=== PATIENT | female | born 1960 | race Caucasian/White ===

== ENCOUNTER 2016-10-24 10:16 | Inpatient (IN) | payer BC ==
--- NOTE | ~2016-10-24 | HP ---
History And Physical [facility] [address] [place]. [address] NAME: ARIE STONE : 64 STATUS : ADM IN [facility]#: [id number] AGE: 56 ADM/REG DATE : 10/24/16 MR#: [id number] REPORT SERV DATE: 10/24/16 DICTATED BY: ABIDA FRANKLIN JR. DATE: 10/24/16 REPORT STATUS : Draft TRANSCRIBED BY: MODJass DATE: 10/24/16 DATE OF ADMISSION: 10/24/2016 REASON FOR ADMISSION: Loculated left pleural effusion. BRIEF HISTORY: This is a 56-year-old white female who had been seen in the emergency room on 10/10/2016 with back pain. At that time, she underwent chest x-ray, as well as CTA of her chest, which were both normal with the exception of some distal thoracic esophageal thickening. Over the last week, she had increasing cough mostly nonproductive and increased pain in her left back with shortness of breath associated with it. She states it was fairly continuous and only got relief with some rest. She denies any fevers associated with it. Because of this, she re-presented to [facility] and was admitted on 10/19. She underwent repeat CT scan, which shows a loculated left pleural effusion. She was also noted to have an elevated white blood count. She was started on antibiotics and we were asked to transfer her for consideration for surgical decortication. PAST MEDICAL HISTORY: Significant for severe scoliosis requiring placement of Soriano rods as a teenager. Chronic back pain and history of tobacco abuse. PAST SURGICAL HISTORY: Includes placement of the Soriano rods in her spine, left hand surgery with tendon repair, and a tubal ligation. HOME MEDICATIONS: Include Sparks 5/325 one tablet every six hours as needed for pain, Advil 4 mg every six hours as needed for pain, Robaxin 750 mg p.o. three times daily. ALLERGIES: INCLUDE IODINE FROM BETADINE AND LATEX, BOTH OF WHICH CAUSE A RASH WITH EXTENDED EXPOSURES. SOCIAL HISTORY: The patient lives in [place], is currently , has four girls who are all grown. She smoked for a total of 20 years, one-pack per day, but quit almost three years ago. She states she has an alcohol beverage maybe one time a month. She denies any illicit drug use. FAMILY HISTORY: Significant for a brother with epilepsy and a grandson with von Willebrand disease. Both her parents are alive with her father being in his 90s and mother in her 70s. REVIEW OF SYSTEMS: Significant for back pain, fatigue, shortness of breath. A complete 12-point review of systems done. All other systems negative except for the above-mentioned pertinent positives in the history of present illness. PHYSICAL EXAMINATION: GENERAL: A 56-year-old, white female, alert, in no acute distress, and appearing her stated age. CONSTITUTIONAL: Vital signs show temperature 98.5, heart rate 113, blood pressure 108/60, respirations 18-20 per minute, oxygen saturation 95% on 3 L nasal cannula. History And Physical [address] [address] NAME: ARIE STONE : 64 STATUS : ADM IN [facility]#: [id number] AGE: 56 ADM/REG DATE : 10/24/16 MR#: [id number] REPORT SERV DATE: 10/24/16 DICTATED BY: ABIDA FRANKLIN JR. DATE: 10/24/16 REPORT STATUS : Draft TRANSCRIBED BY: ELEAZAR DATE: 10/24/16 HEAD, EARS, EYES, NOSE, AND THROAT: Normocephalic, atraumatic. Pupils equal, round and reactive to light. Ears, nose, and throat without drainage, lesions, or exudates noted. NECK: Supple. No lymphadenopathy, JVD, or bruits. Trachea midline with no obvious goiter. CHEST: Symmetrical bilateral movement. No chest wall deformities noted. There is no axillary lymphadenopathy noted. CARDIOVASCULAR: Regular rate and rhythm. S1, S2. No gallop, murmur, or rub. RESPIRATORY: With decreased breath sounds in the left chest. Right clear. There is no use of accessory muscles noted. GASTROINTESTINAL: Abdomen is soft, nontender, nondistended. Positive bowel sounds in all four quadrants. No hepatosplenomegaly noted. : The patient voids without difficulty, otherwise deferred. MUSCULOSKELETAL: Without obvious kyphosis. She does have mild scoliosis and a well-healed surgical scar on the midline spine. Normal range of motion in all four extremities with no significant bony abnormalities. NEURO: All 12 cranial nerves intact. No focal neurologic deficits noted. She is alert and oriented x3. SKIN: Warm, dry. No breakdown or lesions noted. Normal turgor. HEMATOLOGIC/LYMPHATIC: Without any obvious petechiae or ecchymosis noted. There is no supraclavicular, cervical, or axillary lymphadenopathy noted. PSYCH: Normal mood, affect, and pleasant. Answers all questions appropriately. DATA: CT of the chest showing an elevated left hemidiaphragm with extensive loculated pleural effusion in the left chest with compressive atelectasis in most of the left lung. No other significant findings or masses noted. Labs dated 10/24/2016; sodium 144, potassium 3.7, BUN 12, creatinine 0.49, magnesium 2.2. White blood count 23, hemoglobin 9.8, hematocrit 31.4, platelets 650. INR 1.2. PROBLEM LIST: 1. Loculated left pleural effusion, parapneumonic in nature. 2. Chronic back pain. 3. Recent left lower lobe pneumonia. 4. Elevated left hemidiaphragm. 5. Scoliosis, status post Soriano kacy placement. 6. History of tobacco abuse. 7. Distal esophageal thickening of unknown etiology. IMPRESSION AND PLAN: A 56-year-old, white female with recent left-sided pneumonia and now with a loculated pleural effusion consistent with a parapneumonic effusion. She is currently afebrile and nonseptic appearing. She does have a high white count, but had been placed on steroids. I do not see any other treatment option for this fluid in the left chest. I do not think it would be amenable to chest tube or thoracentesis given the loculated nature of it. I discussed with her thoracoscopy with decortication. She understands the risks, benefits, and expected outcome of the procedure. She is willing to proceed. She is currently n.p.o. We will make arrangements for surgery to be done later this afternoon. She does have distal esophageal thickening. Will need to follow up once she recovers from this with an endoscopy by the line assembly utility worker. History And Physical [address] [address] NAME: ARIE STONE : 64 STATUS : ADM IN [facility]#: [id number] AGE: 56 ADM/REG DATE : 10/24/16 MR#: [id number] REPORT SERV DATE: 10/24/16 DICTATED BY: ABIDA FRANKLIN JR. DATE: 10/24/16 REPORT STATUS : Draft TRANSCRIBED BY: MODL DATE: 10/24/16 DICTATED BY: AMY Nelson/ELEAZAR Abida Franklin Jr., M.D. / [id number] CC: Abida Franklin Jr., M.D.
--- NOTE | ~2016-10-24 | OP ---
Record Of Operation [facility] [address] [place]. [address] NAME: ARIE STONE : 64 STATUS : ADM IN [facility]#: [id number] AGE: 56 ADM/REG DATE : 10/24/16 MR#: [id number] REPORT SERV DATE: 10/24/16 DICTATED BY: ABIDA FRANKLIN JR. DATE: 10/24/16 REPORT STATUS : Draft TRANSCRIBED BY: MODJass DATE: 10/24/16 DATE OF PROCEDURE: 10/24/2016 PREOPERATIVE DIAGNOSES: Left pneumonia with parapneumonic effusion, elevated left hemidiaphragm, status post previous back surgery, and chronic obstructive pulmonary disease. POSTOPERATIVE DIAGNOSIS: Left pneumonia with parapneumonic effusion, elevated left hemidiaphragm, status post previous back surgery, and chronic obstructive pulmonary disease, with likely parapneumonic effusion with trapped lung. NAME OF OPERATION: Bronchoscopy, left thoracoscopy with left complete decortication, intercostal nerve block. SURGEON: Abida Franklin M.D. RESIDENT SURGEON: Orlando Bell MD SCARF GLUER: Zach Lobato. ANESTHESIA: Sergio Martin M.D. FINDINGS: The patient was noted to have no endobronchial lesions or contraindications to the procedure. She did have mucus secretions which were evacuated. At the time of exploration of her left chest, she has had an elevated left hemidiaphragm, with a significant parapneumonic effusion, with loculations and gelatinous material. There was a peel on the lung which required decortication. We were able to get good reexpansion of both lobes of the lung postoperatively. Cultures were sent on the fluid, final pathology is pending. DETAILS OF OPERATION: After adequate general anesthesia, the patient was intubated. Bronchoscopy was performed noting no endobronchial lesions or contraindication to resection. A left-sided double-lumen endotracheal tube was then placed. The patient was positioned in the right lateral decubitus position with the left chest was prepped and draped routine sterile fashion. A small incision was made overlying the lower intercostal space. Through a single incision site, the above findings were noted. The chest was explored where the loculated gelatinous material was evacuated. There was a lot of inflammation in the chest cavity. There was no evidence of cancer. The loculations and gelatinous material are broken up. The fluid was sent for cultures. The lung did have a peel and was trapped. Required extensive decortication. We were able to get both lobes re-expanded following the decortication. The chest was then thoroughly irrigated with multiple liters of normal saline solution. An intercostal nerve block was performed. A 32-Swedish chest tube was placed. The lung was reinflated. The single trocar sites were closed with running Vicryl sutures. The skin was closed with running monofilament suture. A Dermabond dressing was applied and the procedure was terminated at this point. The patient tolerated the procedure well and taken back to recovery room in stable condition. Record Of Operation [facility] [address] [facility] [place]. [address] NAME: ARIE STONE : 64 STATUS : ADM IN PAT#: [id number] AGE: 56 ADM/REG DATE : 10/24/16 MR#: [id number] REPORT SERV DATE: 10/24/16 DICTATED BY: ABIDA FRANKLIN JR. DATE: 10/24/16 REPORT STATUS : Draft TRANSCRIBED BY: ELEAZAR DATE: 10/24/16 ARY/ELEAZAR Abida Franklin Jr., M.D. / [id number] CC: Abida Franklin Jr., M.D.
[~2016-10-24 10:16] MED LIST: ADVIL PO; METHOC750B PO; NORCO1 TA1 PO
[2016-10-24 11:39] LABS: BASOPHILS 0 %; BASOPHILS ABSOLUTE 0.01 10/3/uL (0.0-0.16); EOSINOPHILS 0 %; HEMATOCRIT 31.7 % (36.0-48.0); HEMOGLOBIN 10.1 g/dL (12.0-16.0); IMMATURE GRANULOCYTES 0.7 %; IMMATURE GRANULOCYTES ABSOLUTE 0.17 10/3/uL (0.0-0.11); LYMPHOCYTES 6.7 %; LYMPHOCYTES ABSOLUTE 1.53 10/3/uL (0.67-4.30); MEAN CORPUS HGB CONC 31.9 g/dL (32.0-36.0); MEAN CORPUSCULAR HEMOGLOB 27.5 pg (26.0-34.0); MEAN CORPUSCULAR VOLUME 86.4 fL (80-100); MEAN PLATELET VOLUME 8.7 fL (9.2-13.0); MONOCYTES 10.1 %; MONOCYTES ABSOLUTE 2.29 10/3/uL (0.21-1.20); NEUTROPHILS 82.5 %; NEUTROPHILS ABSOLUTE 18.77 10/3/uL (2.02-8.40); PLATELET COUNT 637 10/3/uL (150-400); RBC DISTRIBUTION WIDTH 14.8 % (12.0-16.0); RED CELL COUNT 3.67 10/6/uL (4.0-5.6); WHITE BLOOD CELLS 22.8 10/3/uL (4.5-10.5)
[2016-10-24 11:41] LABS: MANUAL DIFF NO %
[2016-10-24 11:55] LABS: INTERNATIONAL NORMAL RATI 1.3 UNITS (-); PROTIME (NOT ORD) 16.1 SEC (12.0-14.5)
[2016-10-24 12:00] LABS: A/G RATIO 0.5 (0.7-1.9); ALBUMIN 2.1 G/DL (3.5-5.0); ALKALINE PHOSPHATASE 120 U/L (45-117); BUN (BLOOD UREA NITROGEN) 13 MG/DL (6-23); CALCIUM, SERUM 8.3 MG/DL (8.5-10.4); CHLORIDE, SERUM 106 MMOL/L (96-112); CO2 (CARBON DIOXIDE) 29 MMOL/L (24-34); CREATININE 0.53 MG/DL (0.55-1.02); GFR AFRICAN AMERICAN 125 ML/MIN (>=60); GFR NON AFRICAN AMERICAN 108 ML/MIN (>=60); GLOBULIN 4.4 G/DL (2.5-4.1); POTASSIUM, SERUM 3.4 MMOL/L (3.5-5.3); SGOT(AST) 8 U/L (5-40); SGPT(ALT) 15 U/L (5-65); SODIUM, SERUM 145 MMOL/L (135-148); TOTAL BILIRUBIN 0.4 MG/DL (0-1.2); TOTAL PROTEIN 6.5 G/DL (6.0-8.5)
[2016-10-24 12:01] LABS: GLUCOSE, SERUM 97 MG/DL (60-99)
[2016-10-25 06:18] LABS: HEMATOCRIT 32.6 % (36.0-48.0); HEMOGLOBIN 10.1 g/dL (12.0-16.0); MEAN CORPUSCULAR HEMOGLOB 27.4 pg (26.0-34.0); MEAN CORPUSCULAR VOLUME 88.3 fL (80-100); MEAN PLATELET VOLUME 9.1 fL (9.2-13.0); PLATELET COUNT 642 10/3/uL (150-400); RBC DISTRIBUTION WIDTH 15.2 % (12.0-16.0); RED CELL COUNT 3.69 10/6/uL (4.0-5.6); WHITE BLOOD CELLS 16.8 10/3/uL (4.5-10.5)
[2016-10-25 06:26] LABS: MANUAL DIFF YES %
[2016-10-25 06:29] LABS: BUN (BLOOD UREA NITROGEN) 10 MG/DL (6-23); CALCIUM, SERUM 7.8 MG/DL (8.5-10.4); CHLORIDE, SERUM 105 MMOL/L (96-112); CO2 (CARBON DIOXIDE) 27 MMOL/L (24-34); CREATININE 0.51 MG/DL (0.55-1.02); GFR AFRICAN AMERICAN 126 ML/MIN (>=60); GFR NON AFRICAN AMERICAN 109 ML/MIN (>=60); POTASSIUM, SERUM 3.9 MMOL/L (3.5-5.3); SODIUM, SERUM 142 MMOL/L (135-148)
[2016-10-25 06:31] LABS: GLUCOSE, SERUM 127 MG/DL (60-99)
[2016-10-25 07:23] LABS: LYMPHOCYTES 9 %; LYMPHOCYTES ABSOLUTE (CALC) 1.51 10/3/uL (0.67-4.30); MONOCYTES 7 %; MONOCYTES ABSOLUTE (CALC) 1.18 10/3/uL (0.21-1.20); NEUTROPHILS ABSOLUTE (CALC) 14.11 10/3/uL (2.02-8.40); SEGMENTED NEUTROPHIL (0) 84 %; TOTAL NUCLEATED CELLS 100
[2016-10-25 07:24] LABS: PLATELET ESTIMATE INC (ADEQUATE); RBC MORPHOLOGY NORM (NORMAL)
[2016-10-26 07:31] LABS: BUN (BLOOD UREA NITROGEN) 6 MG/DL (6-23); CALCIUM, SERUM 8.3 MG/DL (8.5-10.4); CHLORIDE, SERUM 105 MMOL/L (96-112); CO2 (CARBON DIOXIDE) 30 MMOL/L (24-34); CREATININE 0.54 MG/DL (0.55-1.02); GFR AFRICAN AMERICAN 124 ML/MIN (>=60); GFR NON AFRICAN AMERICAN 107 ML/MIN (>=60); GLUCOSE, SERUM 97 MG/DL (60-99); POTASSIUM, SERUM 3.4 MMOL/L (3.5-5.3); SODIUM, SERUM 142 MMOL/L (135-148)
[2016-10-26] MEDS ORDERED: P10 PO (09:47)
[2016-10-26] MEDS ORDERED: LEVAQUIN750 MG PO (09:47)
== END 2016-10-26 12:33 | disposition home or self-care (01) | DRG 164 ==
LOC: 5NO 10:16
PROVIDERS: Nurse Practitioner Acute Care; Thoracic Surgery (Cardiothoracic Vascular Surgery)
PROC: 0BDP4ZZ Extraction of Left Pleura, Percutaneous Endoscopic Approach (ICD-10-PCS; principal; 2016-10-24 13:45)
PROC: 3E0T3CZ (ICD-10-PCS; 2016-10-24 13:45)
DX: J18.9 Pneumonia, unspecified organism (principal); J91.8 Pleural effusion in other conditions classified elsewhere; M41.9 Scoliosis, unspecified; Z87.891 Personal history of nicotine dependence; Z91.040 Latex allergy status
CPT/HCPCS: 36415; 71020; 80048; 80053; 82962; 85025; 85610; 86850; 86900; 86901; 86920; 87015; 87070; 87075; 87102; 87116; 87205; 93005; 94640; A9270-GY; J0690; J1885; J2250; J2370; J2795; J3010